=== PATIENT | female | born 1955 | race Caucasian/White ===

== ENCOUNTER 2023-05-18 11:08 | Outpatient (REF) | payer MEDICARE, OTHER, SELFPAY ==
--- NOTE | ~2023-05-18 | XR_ITS ---
EXAMINATION: XR HIP, LEFT CLINICAL INFORMATION: Pain. COMPARISON: None available. TECHNIQUE: A frog lateral view of the left hip is submitted, together with an AP view of the pelvis. FINDINGS: Bony alignment and mineralization are normal. The right acetabular joint space is well-maintained. There is subchondral sclerosis of the right acetabular roof, with a tiny peripheral osteophyte. The left acetabular joint space shows moderate narrowing medially. There is subchondral sclerosis of the left acetabular roof, with a tiny peripheral osteophyte. The femoral heads are smooth. No fracture or dislocation is seen. There are pelvic phleboliths. No foreign body is seen. XR/XR hip LT min 2V IMPRESSION: 1. There is moderate osteoarthritic change of the left hip, and mild osteoarthritic change is seen of the right hip. 2. No fracture or dislocation is seen.
== END 2023-05-18 11:09 | disposition home or self-care (01) ==
LOC: HO.HOSX 11:08
PROVIDERS: PCP Nurse Practitioner Family; Visit Provider Orthopaedic Surgery
DX: M25.552 Pain in left hip (principal)
CPT/HCPCS: 73502

== ENCOUNTER 2023-05-18 11:08 | Outpatient (AMB) | payer MEDICARE, OTHER, SELFPAY ==
--- NOTE | 2023-05-18 11:09 | A.OFFVIS_ITS ---
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 She denies any surgery or injections. The patient states that she was scheduled to undergo left total hip replacement surgery by Dr. Duong earlier this month but she canceled her surgery because of transportation and ongoing mattress issues. The patient does walk with a cane. She describes her left hip pain as sharp in nature. The patient presents here for a 2nd opinion regarding her left hip pain. Allergies ciprofloxacin [From CIPRO] Allergy (Unknown, Unverified 10/26/19 19:17) UNKNOWN nitrofurantoin [From Macrobid] Adverse Reaction (Intermediate, Verified 05/18/23 11:34) Unknown paroxetine [From Paxil] Adverse Reaction (Mild, Verified 05/18/23 11:34) Unknown Medication List - Last Reconciled 05/18/23 by Akshat Li MD cephalexin 500 mg PO BID estradiol 0.01%(0.1mg/gram) vaginal levothyroxine 125 mcg PO DAILY Physical Exam Const Other: Well-nourished well-developed very friendly female awake alert and oriented x3 in no acute distress Extrem Other: Left hip examination shows no tenderness over her bursa, pain with range of motion Results Reviewed Results Reviewed: X-rays of the patient's left hip show severe degenerative joint disease with 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 Castanon presents with left hip pain due to end-stage degenerative joint disease. I had a lengthy discussion with the patient regarding the treatment options. At this point she appears to have failed continued non operative treatments. I do agree with her plan to undergo left total hip replacement surgery. The patient does understand that I am no longer performing this type of surgery. I did offer to arrange a consultation with my partner, Dr. Medina, who does perform this type of surgery. The patient states that when she is ready to undergo surgery she would rather reschedule with Dr. Duong. She will follow up with me on an as-needed basis. Feel free to call me at any time should questions regarding her orthopedic management arise. I spent 22 minutes in reviewing the patient's records and imaging studies, seeing the patient and documenting in the medical record. Orders: Orders XR hip LT min 2V Today M25.552 - Pain in left hip Coding Level of Care Code New Pt Level 2 (36320) Diagnoses Left hip pain M25.552
== END 2023-05-18 11:54 | disposition home or self-care (01) ==
PROVIDERS: PCP Nurse Practitioner Family; Visit Provider Orthopaedic Surgery
DX: M25.552 Pain in left hip (principal)
CPT/HCPCS: 99202